=== PATIENT | female | born 1970 | race Native Hawaiian/Other Pacific Islander ===

== ENCOUNTER 2016-06-25 20:07 | Emergency (ER) | payer OTHER ==
[~2016-06-25] VITALS: Ht 160 cm; Wt 68.0 kg
[2016-06-25 21:42] VITALS: BP 142/90; TEMP 99.3
== END 2016-06-25 21:42 | disposition home or self-care (01) ==
LOC: ED 20:07
PROC: 2W3DX1Z Immobilization of Left Lower Arm using Splint (ICD-10-PCS; principal; 2016-06-25)
DX: S63.502A Unspecified sprain of left wrist, initial encounter (principal); K52.9 Noninfective gastroenteritis and colitis, unspecified; B96.89 Other specified bacterial agents as the cause of diseases classified elsewhere; V86.99XA Unspecified occupant of other special all-terrain or other off-road motor vehicle injured in nontraffic accident, initial encounter
CPT/HCPCS: 96372; 99283; J2550; L3908

== ENCOUNTER 2016-09-13 18:52 | Emergency (ER) | payer OTHER ==
[~2016-09-13] VITALS: Ht 160 cm; Wt 72.6 kg
[2016-09-13] MEDS ORDERED: TRAMADOL HCL100 MG PO (19:15)
[2016-09-13 23:03] VITALS: BP 132/71; TEMP 98.3
== END 2016-09-13 23:06 | disposition home or self-care (01) ==
LOC: ED 18:52
DX: M47.897 Other spondylosis, lumbosacral region (principal); M48.07 Spinal stenosis, lumbosacral region
CPT/HCPCS: 96372; 99283; J1885

== ENCOUNTER 2017-03-17 17:31 | Emergency (ER) | payer OTHER ==
[~2017-03-17] VITALS: Ht 160 cm; Wt 81.2 kg
[~2017-03-17 17:31] MED LIST: TRAMADOL HCL100 MG PO
[2017-03-17 19:54] VITALS: BP 146/101; TEMP 97.6
== END 2017-03-17 20:04 | disposition home or self-care (01) ==
LOC: ED 17:31
DX: J20.9 Acute bronchitis, unspecified (principal); F41.9 Anxiety disorder, unspecified
CPT/HCPCS: 99283

== ENCOUNTER 2017-07-24 15:56 | Emergency (ER) | payer OTHER ==
[~2017-07-24] VITALS: Ht 160 cm; Wt 81.6 kg
[2017-07-24 16:00] VITALS: BP 159/82; TEMP 98.8
== END 2017-07-24 16:16 | disposition home or self-care (01) ==
LOC: ED 15:56
DX: K64.9 Unspecified hemorrhoids (principal)
CPT/HCPCS: 99281

== ENCOUNTER 2017-12-12 12:17 | Emergency (ER) | payer OTHER ==
[~2017-12-12] VITALS: Ht 160 cm; Wt 74.8 kg
[2017-12-12 13:39] LABS: PLATELET COUNT 242 K/uL (152-353)
[2017-12-12 13:43] LABS: POTASSIUM 3.4 mmol/L (3.6-5.2)
[2017-12-12 14:48] VITALS: BP 116/65; TEMP 98.2
== END 2017-12-12 14:49 | disposition home or self-care (01) ==
LOC: ED 12:17
PROVIDERS: Family Medicine
DX: J06.9 Acute upper respiratory infection, unspecified (principal); R50.9 Fever, unspecified
CPT/HCPCS: 36415; 80053; 81000; 85027; 87077; 87081; 87185; 87880; 96372; 99283; J0696

== ENCOUNTER 2018-01-14 21:27 | Emergency (ER) | payer OTHER ==
[~2018-01-14] VITALS: Ht 160 cm; Wt 74.8 kg
[2018-01-14 21:43] VITALS: TEMP 98.7
[2018-01-14 22:45] VITALS: BP 148/82
== END 2018-01-14 22:46 | disposition home or self-care (01) ==
LOC: ED 21:27
DX: S60.041A Contusion of right ring finger without damage to nail, initial encounter (principal); X58.XXXA Exposure to other specified factors, initial encounter
CPT/HCPCS: 99282

== ENCOUNTER 2020-12-06 18:27 | Emergency (ER) | payer OTHER ==
[~2020-12-06] VITALS: Ht 160 cm; Wt 74.8 kg
[2020-12-06 18:49] VITALS: TEMP 98.9
[2020-12-06 20:25] LABS: PLATELET COUNT 223 K/uL (152-353)
[2020-12-06 20:36] LABS: POTASSIUM 3.6 mmol/L (3.6-5.2)
[2020-12-06 23:00] VITALS: BP 100/58
== END 2020-12-06 23:15 | disposition home or self-care (01) ==
LOC: ED 18:27
PROVIDERS: Emergency Medicine Emergency Medical Services
DX: B34.9 Viral infection, unspecified (principal); U07.1 COVID-19
CPT/HCPCS: 36415; 80053; 85008; 85027; 87502; 87635; 96360; 96374; 96375; 99284; J1100; J2405; U0003

== ENCOUNTER 2021-07-13 23:03 | Emergency (ER) | payer OTHER ==
[~2021-07-13] VITALS: Ht 160 cm; Wt 79.4 kg
[2021-07-14 00:15] VITALS: BP 131/76; TEMP 98.1
== END 2021-07-14 00:20 | disposition home or self-care (01) ==
LOC: ED 23:03
PROC: 0WJP0ZZ Inspection of Gastrointestinal Tract, Open Approach (ICD-10-PCS; principal; 2021-07-13)
DX: K64.5 Perianal venous thrombosis (principal)
CPT/HCPCS: 96372; 99283; J2270; J2405; J3490

== ENCOUNTER 2021-12-15 07:51 | Emergency (ER) | payer OTHER ==
[~2021-12-15] VITALS: Ht 160 cm; Wt 79.4 kg
[2021-12-15 08:09] VITALS: BP 131/74; TEMP 97.3
== END 2021-12-15 09:17 | disposition home or self-care (01) ==
LOC: ED 07:51
DX: S70.362A Insect bite (nonvenomous), left thigh, initial encounter (principal); W57.XXXA Bitten or stung by nonvenomous insect and other nonvenomous arthropods, initial encounter; Y92.89 Other specified places as the place of occurrence of the external cause
CPT/HCPCS: 99283